=== PATIENT | male | born 1985 | race Caucasian/White ===

== ENCOUNTER → 2019-01-27 | Outpatient (CLI) | payer OTHER ==
--- NOTE | 2019-01-28 12:09 | Diagnostic Imaging Report ---
History: Low back pain and right leg pain Comparison studies: MRI of the lumbar spine 08/21/2014 Technique: Sagittal, coronal and axial T2 , sagittal T1 and IR, axial spin density oblique. Intravenous contrast: None Findings: Number of lumbar vertebral bodies:5 Alignment: . Anterolisthesis of L5 over S1 (0.7 cm) with bilateral L5 pars defect.No scoliosis. Soft tissues: No T2 hyperintense inflammatory changes. Paraspinal muscles: No signal abnormalities. No atrophy. Lower thoracic cord:Normal in signal and morphology. The tip of the conus is at L1. Cauda equina: No masses. No arachnoiditis. Vertebrae: Normal in height and signal intensity. No compression fractures, infection or neoplasm. Degenerative changes: L1-L2: No abnormalities. L2-L3: No abnormalities. L3-L4: No abnormalities. L4-L5: Mild facet hypertrophy with patent canal and foramina. L5-S1: Disc degeneration with loss of T2 signal, asymmetric right disc bulge and uncoverage of superior disc material results in no significant canal stenosis, moderate right and mild left foraminal narrowing with impingement of the right L5 exiting nerve root. Mild bilateral facet hypertrophy Additional findings: None IMPRESSION: Mildly progressed anterolisthesis of L5 over S1 with uncoverage of superior disc and asymmetric right disc bulge results in moderate right foraminal narrowing with impingement of the exiting L5 nerve root. L5 spondylolysis. No other significant (moderate or severe) canal stenosis or foraminal narrowing. Signed by: DR Jamin Kim M.D. on 01/28/2019 12:06 PM
== END ==
LOC: MRI 11:08
PROVIDERS: ATTEND Specialist
DX: M99.03 Segmental and somatic dysfunction of lumbar region (principal)
CPT/HCPCS: 72148